=== PATIENT | female | born 1965 | race Caucasian/White ===

== ENCOUNTER → 2019-03-09 10:41 | Outpatient (CLI) | payer BC, SELFPAY ==
--- NOTE | 2019-03-09 | DI.MRI.S_ITS ---
PROCEDURE: MR SHOULDER LT WO CON INDICATIONS: Shoulder injury. TECHNIQUE: Noncontrast oblique coronal T2 fast spin echo with fat saturation, oblique sagittal T1 spin echo and T2 fast spin echo with fat saturation, axial T1 spin echo and T2 fast spin echo with fat saturation through the shoulder. COMPARISON: None. FINDINGS: Image quality: Excellent. Rotator cuff: Small focus of linear high T2 signal intensity traverses the anterior supraspinatus tendon at the femoral insertion site. The supraspinatus, infraspinatus, and subscapularis tendons otherwise appear intact throughout. Sagittal images demonstrate no muscle atrophy. Bones and bursae: No displaced fracture. Moderate ill-defined T2 signal elevation within the inferomedial humeral head humeral neck. Mild acromioclavicular joint degeneration. The acromion demonstrates conventional anatomy, without an os acromiale. A small amount of subacromial-subdeltoid or subcoracoid bursal fluid is present. Capsule and soft tissues: Moderate articular cartilage loss overlies the glenoid. Linear high T2 signal intensity traverses the anteroinferior glenoid labrum. The long head of the biceps tendon demonstrates normal location and morphology. The rotator interval appears normal, without fibrosis. The coracohumeral ligament is normal in thickness. IMPRESSION: 1. Low-grade partial-thickness tearing of the anterior supraspinatus tendon. No full-thickness rotator cuff tears. 2. Contusion within the humeral head and neck. No displaced fracture. 3. Anteroinferior glenoid labral tearing. 4. Glenohumeral joint articular cartilage loss. 5. Subacromial bursitis. 6. Acromioclavicular joint osteoarthritis. Dictated by: Krystyna Estrada M.D. on 03/09/2019 at 12:18 Approved by: Krystyna Estrada M.D. on 03/09/2019 at 12:21
--- NOTE | 2019-03-09 | DI.MG.S_ITS ---
BILATERAL DIGITAL SCREENING MAMMOGRAM 3D/2D WITH CAD: 03/09/2019 CLINICAL: Routine screening. Family history of breast cancer. Comparison is made to exams dated: 01/20/2018 mammogram, 06/16/2015 mammogram - [facility], and 05/13/2014 mammogram - [facility]. The tissue of both breasts is heterogeneously dense. This may lower the sensitivity of mammography. Current study was also evaluated with a Computer Aided Detection (CAD) system. No significant masses, calcifications, or other findings are seen in either breast. There has been no significant interval change. IMPRESSION: NEGATIVE There is no mammographic evidence of malignancy. A 1 year screening mammogram is recommended. This exam was interpreted at Station ID: [id number]. NOTE: For mammograms, a report in lay terms will be sent to the patient. Approximately 15% of breast malignancies will not be visualized mammographically. In the management of a palpable breast mass, a negative mammogram must not discourage biopsy of a clinically suspicious lesion. Electronically Signed By: Tesfaye daily/genevieve:03/09/2019 11:38:34 letter sent: Normal Exam ACR BI-RADS Category 1: Negative 3341F
== END ==
PROVIDERS: PCP Family Medicine; Visit Provider Family Medicine
DX: Z12.31 Encounter for screening mammogram for malignant neoplasm of breast (principal); Z80.3 Family history of malignant neoplasm of breast; M25.512 Pain in left shoulder; S49.92XA Unspecified injury of left shoulder and upper arm, initial encounter; S29.012A Strain of muscle and tendon of back wall of thorax, initial encounter; S40.022A Contusion of left upper arm, initial encounter; M75.52 Bursitis of left shoulder; M19.012 Primary osteoarthritis, left shoulder
CPT/HCPCS: 73221; 77063; 77067

== ENCOUNTER 2019-10-01 06:35 | Day surgery (SDC) | payer BC, SELFPAY ==
[2019-10-01] VITALS (8 sets, daily range): BP systolic 90–122; BP diastolic 53–86; PULSE 66–87; RESP 12–20; TEMP 36.2–36.7; O2SAT 96–100; BMI 21.7
--- NOTE | 2019-10-01 | PATH_ITS ---
[facility] Accession Number: [id number] . 01 Material submitted: . PART A: sigmoid colon - POLYP AT 35 CM SIGMOID PART B: rectum - POLYP 20 CM RECTAL . 01 Clinical history: . SCREENING COLONOSCOPY . 02 Diagnosis: A. Sigmoid Colon, Polyp at 35 cm, Biopsy: Hyperplastic polyp. . B. Rectum, Polyp 20 cm, Biopsy: Hyperplastic polyp. V 10/04/2019 1033 Local . 02 Electronically signed: . Paula Vargas MD, Pathologist NPI- [id number] . 01 Gross description: . Part A: POLYP AT 35 CM SIGMOID: Received in formalin is 1 fragment(s) of ryder, soft tissue measuring 0.3 x 0.2 x 0.2 cm submitted entirely in 1 cassette(s) Part B: POLYP 20 CM RECTAL: Received in formalin are 2 fragment(s) of ryder, soft tissue measuring 0.1 x 0.1 x 0.1 cm to 0.2 x 0.2 x 0.2 cm submitted entirely in 1 cassette(s) /[facility] 10/01/2019 1905 Local . 02 Pathologist provided ICD-10: K63.5, K62.1 . 02 CPT . 853343, [id number] Performed at: 01 [facility] [address], [place], [place] [id number] MD Kei Quiroga MD Phone: [phone] Performed at: 02 [facility] [address] [place], [place] [id number] MD Paula Vargas MD Phone: [phone]
--- NOTE | 2019-10-01 07:39 | P.HP_ITS ---
History of Present Illness History of Present Illness Date Patient Seen: 10/01/19 Time Patient Seen: 07:40 Chief complaint: [id number] SCREENING COLONOSCOPY Narrative: This is a 53-year-old woman an average risk for colon cancer. She has never had a screening colonoscopy. She is here for her 1st screening. She denies any melena or hematochezia. She has had history of anal fissure surgery, and has some chronic leakage since then. Otherwise she is healthy person and denies any other significant medical issues. ROS: Thirteen system review is negative other than as mentioned below and in HPI. PE: GENERAL: Well groomed and cooperative. Appears stated age. Answers questions promptly and appropriately. Vital signs noted. HENT: Normocephalic, atraumatic. Hearing intact. Oral mucosa is pink and moist. EYES: Conjunctiva pink, sclera white, no periorbital swelling. CARDIOVASCULAR: Regular rate. No pedal edema. RESPIRATORY: Normal respiratory rate, breathing comfortably on room air. GASTROINTESTINAL: Abdomen soft and non-distended GENITALURINARY: No flank tenderness. MUSCULOSKELETAL: Equal tone and mass bilaterally. SKIN: Warm, dry, soft, appropriate color for ethnicity. No other lesions, rashes, or wounds. NEURO: Alert and Oriented X 3. No gross sensory deficits, or cognitive issues. PSYCH: Appropriate affect and mood. Patient History Medical History Acne (Chronic) Chicken pox (Resolved 1981) Chronic back pain (Chronic 1987) Chronic headaches (Chronic) Migraines (Chronic 2001) Ovarian cyst (Resolved 1989) Ulnar nerve abnormality (Resolved 1999) Surgical History Anesthesia (Resolved) History of rectal surgery (Resolved 2008) History of surgery on arm (Resolved 2003) Left breast abscess (Resolved 2002) Family & Social History Family History Father Age: 80 Diabetes mellitus Heart disease Hypertension High cholesterol Mother Age: 80 Hypertension High cholesterol Grandmother Cancer Heart attack Grandfather Aneurysm Grandmother Cancer Social History: household members family lives independently Yes Tobacco & Substance use: Smoking Status Former smoker alcohol intake current Meds Home Medications and Allergies Home Medications Medication Instructions Recorded Confirmed Type acyclovir 400 mg PO TID PRN 10/01/19 10/01/19 History estradiol-norethindrone acet 1 tab PO DAILY 10/01/19 10/01/19 History [Amabelz] Allergies Allergy/AdvReac Type Severity Reaction Status Date / Time sertraline AdvReac Intermediate dizziness,c Verified 10/01/19 07:06 onfusion Codiene AdvReac Severe stomache Uncoded 10/01/19 07:06 upset Exam Vital Signs (past 8 hours): - 10/01/19 07:13 Temperature 98.1 F Pulse Rate 78 Respiratory Rate 12 Blood Pressure 113/79 Pulse Oximetry 100 Oxygen Delivery Method Room Air Assessment & Plan Assessment and plan (1) At average risk for colon cancer: Current visit: Yes Status: Acute (2) Colon cancer screening: Current visit: Yes Status: Acute Assessment & Plan narrative: Is a 53-year-old woman here for her 1st screening colonoscopy. Risks and benefits of screening colonoscopy and polypectomy were discussed. Risks including bleeding, perforation, damage to nearby structures, need for surgery need for additional procedures, risk of anesthesia were discussed. The patient had plans to go home today by driving herself to the [place], and I have explained to her in very clear terms that she cannot drive for 24 hours after surgery. She has clearly told me that she will have her mother drive her, and verbalizes clear understanding that she is not to drive for 24 hours after sedation. I have offered to reschedule her for another day but she says this is not necessary. Plan: Screening colonoscopy with possible polypectomy Time Spent With Patient Time with patient: 15-24 minutes Quality VTE Deep Vein Thrombosis/Pulmonary Embolism Present on Admission: No
[2019-10-01] MEDS: SODIUM CHLORIDE 0.9% 1,000 ML 200 ML IV (07:40)
--- NOTE | 2019-10-01 07:45 | SUR.OPER ---
GLASSES IN LABELED CONTAINER TO PACU WITH PATIENT
[2019-10-01] MEDS: MIDAZOLAM 5 MG/5 ML VIAL IV (08:10)
[2019-10-01] MEDS: fentaNYL 250 MCG/5 ML INJ IV (08:10)
--- NOTE | 2019-10-01 08:16 | PM.OP.ENDO ---
Operative Date/Time/Diagnoses Date of procedure: 10/01/19 Time of procedure: 08:16 Pre-op diagnosis: Average risk for colon cancer. Post-op diagnosis: other (Colon polyps Polyps) Procedure & Clinicians Study performed: Screening colonoscopy, polypectomy x2 with cold forceps Same procedure as scheduled: Yes Indications: Average risk for colon cancer, appropriate age for colonoscopy screening Surgeon: Lisbeth Hopson Procedure Notes SCOAP/Timeout: Performed Procedure in detail: The patient was brought to the room and placed in left lateral decubitus position with all bony prominences padded. A time-out was performed and then the patient was given procedural sedation starting with 4 mg of Versed and 100 mcg of fentanyl. Vitals were monitored throughout the procedure and remained stable. Once adequately sedated the procedure was begun. A rectal exam was performed revealing no abnormalities. The colonoscope was then introduced to the rectum and advanced to the cecum in the usual fashion. The cecum was identified by the appendiceal orifice, the mucosal try fold, and the ileocecal valve. The scope was then retracted while rotating side to side and examining each mucosal fold. 2 polyps were removed during retraction of the scope. One was at 35 cm and was a 2 mm flat sessile polyp, and 1 was at 20 cm from the anal verge. It was a 1 cm flat sessile polyp At the conclusion procedure retroflexion was performed and small grade 1-2 internal hemorrhoids without stigmata of bleeding were seen. The scope was then withdrawn from the rectum the procedure was concluded. The patient tolerated the procedure well was transferred to the PACU in stable condition. Scope withdrawal time: 14 Sedation minutes: 26 Findings: internal hemorrhoids and polyp Specimen(s): other (2 mm flat polyp from 35 cm from the anal verge in the sigmoid colon, 1 cm flat polyp from 20 cm from the anal verge in the rectum) Complications: none Impression: Two small polyps, grade 1-2 internal hemorrhoids Post-procedure Recommendations: Colonscopy in 10 years (If pathology is non neoplastic) Follow up: as needed Disposition: PACU
--- NOTE | 2019-10-01 08:38 | SUR.PHASEII ---
Pt waiting for ride, call light provided. Juice, water provided.
--- NOTE | 2019-10-01 09:53 | SUR.PHASEII ---
Discharged by Deyanira
== END 2019-10-01 09:51 | disposition home or self-care (01) ==
PROVIDERS: PCP Family Medicine; Visit Provider Surgery
PROC: 0DJD8ZZ Inspection of Lower Intestinal Tract, Via Natural or Artificial Opening Endoscopic (ICD-10-PCS; CPT 45378; principal; 2019-10-01 07:45)
DX: Z12.11 Encounter for screening for malignant neoplasm of colon (principal); K64.0 First degree hemorrhoids; K63.5 Polyp of colon; K62.1 Rectal polyp
CPT/HCPCS: 45380; 99152; J2250; J3010

== ENCOUNTER → 2020-07-11 10:59 | Outpatient (CLI) | payer OTHER, SELFPAY ==
[2020-07-11 12:40] LABS: Add Manual Diff / Slide Review NO; Basophils Absolute Auto 0 /uL (0-100); Basophils Percent Auto 0.5 % (0-2); Eosinophils Absolute Auto 100 /uL (0-450); Eosinophils Percent Auto 1.3 % (2-4); Hematocrit 42.3 % (36-46); Hemoglobin 14.1 g/dL (12.0-16.0); Lymphocytes Absolute Auto 1600 /uL (1100-4500); Lymphocytes Percent Auto 33.5 % (25-40); Mean Corpuscular HGB Conc 33.3 % (30-36); Mean Corpuscular Hemoglobin 31.7 PG (26-34); Mean Corpuscular Volume 95.2 fL (80-100); Monocytes Absolute Auto 300 /uL (0-900); Monocytes Percent Auto 5.7 % (3-14); Neutrophils Absolute Auto 2900 /uL (1500-7000); Platelet Count 262 X10^3/uL (150-400); Red Blood Cell Count 4.45 X10^6/uL (4.0-5.2); Red Cell Distribution Width 11.6 % (11.6-14.8); White Blood Cell Count 4.8 X10^3/uL (4.5-11.0)
[2020-07-11 12:59] LABS: Alanine Aminotransferase 17 IU/L (<35); Albumin 4.2 g/dL (3.5-5.0); Albumin Globulin Ratio 1.4 (1.0-2.8); Alkaline Phosphatase 58 U/L (38-126); Aspartate Aminotransferase 23 IU/L (14-36); BUN Creatinine Ratio 18.2 (6-22); Bilirubin Total 0.6 mg/dL (0.2-1.3); Blood Urea Nitrogen 14 mg/dL (7-17); Calcium 9.3 mg/dL (8.4-10.2); Carbon Dioxide 32 mmol/L (22-32); Chloride 101 mmol/L (98-107); Estimated Glomerular Filt Rate > 60.0 mL/min (>60); Globulin 2.9 g/dL (1.7-4.1); Glucose 128 mg/dL (70-100); HEMOLYSIS < 15 (0-50); Potassium 4.1 mmol/L (3.4-5.1); Sodium 139 mmol/L (137-145); Total Protein 7.1 g/dL (6.3-8.2)
[2020-07-11 13:18] LABS: Prolactin 8.2 ng/mL (3.0-18.6)
== END ==
PROVIDERS: PCP Family Medicine; Referring Provider Family Medicine; Visit Provider Family Medicine
DX: N64.52 Nipple discharge (principal)
CPT/HCPCS: 36415; 80053; 84146; 85025

== ENCOUNTER → 2020-07-11 11:00 | Outpatient (CLI) | payer OTHER, SELFPAY | PROVIDERS: PCP Family Medicine; Visit Provider Family Medicine | DX: N64.52 Nipple discharge (principal) | CPT/HCPCS: 87070; 87075; 87077; 87147; 87186; 87205 ==

== ENCOUNTER → 2020-12-22 12:32 | Outpatient (CLI) | payer OTHER, SELFPAY | PROVIDERS: PCP Family Medicine; Visit Provider Family Medicine | DX: N89.8 Other specified noninflammatory disorders of vagina (principal) | CPT/HCPCS: 87070; 87205; 87210 ==

== ENCOUNTER → 2021-01-22 11:34 | Outpatient (CLI) | payer OTHER, SELFPAY ==
--- NOTE | 2021-01-22 11:36 | DI.MRI.S_ITS ---
BREAST MRI OF BOTH BREASTS: 01/22/2021 CLINICAL: Persistant bilateral nipple discharge. PROCEDURE: MR BREAST BI WO/W CON INDICATIONS: Persistent bilateral nipple discharge TECHNIQUE: The patient was placed prone in a dedicated breast imaging coil. Precontrast axial STIR and 3D FLASH without fat saturation sequences were obtained. Both before and after bolus injection of contrast, sequential 1-minute axial 3D FLASH with fat saturation sequences for 3 time points, with subtraction images and maximum intensity projections (MIP's) generated. Delayed sagittal FLASH images with fat saturation were also obtained. Contrast: Computer-aided detection, including computer algorithm analysis of MRI image data for lesion detection and characterization, pharmacokinetic analysis, with further physician review for interpretation, was performed. COMPARISON: [facility], US, US BREAST LIMITED RIGHT, 07/18/2020, 15:05. [facility], US, US BREAST LIMITED LEFT, 07/18/2020, 14:59. [facility], MG, MG DIAGNOSTIC BILATERAL DIGITAL BREAST TOMOSYNTHESIS, 07/18/2020, 14:30. [facility], MM SCREENING MAMMO BI, 03/09/2019, 11:06. [facility], BILATERAL SCREENING MAMMOGRAM, 01/20/2018, 10:12. FINDINGS: Image quality: Excellent. There is mild background parenchymal enhancement. Right breast: No mass or suspicious enhancement. Left breast: Left breast 4 o'clock anterior depth T2 mildly hyperintense and T1 intrinsic hyperintense cyst without enhancement measuring 1 x 0.7 x 0.6 cm, (19/70 and 5/61). This corresponds to the abnormality seen on recent ultrasound. This is consistent with a hemorrhagic/proteinaceous cyst or mildly dilated duct. Left breast 3 o'clock middle depth T2 hyperintense benign cyst with minimal peripheral enhancement measuring 0.9 cm, (). Kinetic analysis demonstrates slow initial phase and persistent delayed phase. No mass or suspicious enhancement. Miscellaneous: No suspicious adenopathy. IMPRESSION: BENIGN 1. Right breast: No mass or suspicious enhancement. 2. Left breast: Small proteinaceous/hemorrhagic cyst or mildly dilated duct at left breast 4 o'clock anterior depth 1 cm is benign. No suspicious enhancement. This corresponds to the ultrasound finding. 3. No suspicious adenopathy. BIRADS 2. Future imaging is recommended as follows: 07/19/2021 screening mammogram. COMMENT: The imaging literature indicates that a negative contrast breast MRI examination has a high sensitivity and a moderate specificity for detecting and excluding invasive carcinomas to a detection threshold of 3-5 mm; nonetheless, appropriate clinical and mammographic follow-up are recommended. MRI is not sensitive for detecting DCIS (ductal carcinoma in situ) and may not detect large invasive neoplasms that show only minimal enhancement such as mucinous carcinoma. If there are suspicious calcifications or clinically worrisome palpable masses, then biopsy should still be considered. Invasive neoplasms can be hidden by co-existent and benign enhancement caused by mastitis, hormone therapy effects, radiation therapy, , and recent biopsy or surgery. False positive examinations can occur in a number of circumstances, including breasts that have recently been subject to invasive procedures and those that contain atypical ductal hyperplasia, hormonally stimulated glandular tissue, fat necrosis, or radial scars. Dictated by: Jarrell Duvall M.D. on 01/22/2021 at 16:44 This exam was interpreted at Station ID: [id number]. Electronically Signed By: Jarrell Duvall M.D. slc/:01/22/2021 17:12:56 letter sent: Normal Exam ACR BI-RADS Category 2: Benign Finding(s) 3342F
== END ==
PROVIDERS: PCP Family Medicine; Referring Provider Family Medicine; Visit Provider Family Medicine
DX: N64.52 Nipple discharge (principal)
CPT/HCPCS: 77049

== ENCOUNTER → 2021-02-05 11:35 | Outpatient (CLI) | payer OTHER, SELFPAY | PROVIDERS: PCP Family Medicine; Visit Provider Obstetrics & Gynecology | DX: N76.0 Acute vaginitis (principal) | CPT/HCPCS: 87070; 87205 ==

== ENCOUNTER → 2021-11-26 08:07 | Outpatient (CLI) | payer OTHER, SELFPAY ==
[2021-11-26 09:38] LABS: Alanine Aminotransferase 18 IU/L (<35); Albumin 4.2 g/dL (3.5-5.0); Albumin Globulin Ratio 1.4 (1.0-2.8); Alkaline Phosphatase 57 U/L (38-126); Aspartate Aminotransferase 26 IU/L (14-36); Blood Urea Nitrogen 12 mg/dL (7-17); Calcium 9.3 mg/dL (8.4-10.2); Carbon Dioxide 30 mmol/L (22-32); Chloride 105 mmol/L (98-107); Cholesterol 236 mg/dL (140-199); Estimated Glomerular Filt Rate > 60.0 mL/min (>60); Globulin 2.9 g/dL (1.7-4.1); Glucose 106 mg/dL (70-100); HDL Cholesterol 73 mg/dL (40-60); HEMOLYSIS < 15 (0-50); LDL Cholesterol Calculated 146 mg/dL (<100); Potassium 4.1 mmol/L (3.4-5.1); Sodium 140 mmol/L (137-145); Total Protein 7.1 g/dL (6.3-8.2); Triglycerides 85 mg/dL (35-150)
== END ==
PROVIDERS: PCP Family Medicine; Referring Provider Family Medicine; Visit Provider Family Medicine
DX: Z13.220 Encounter for screening for lipoid disorders (principal); Z13.1 Encounter for screening for diabetes mellitus
CPT/HCPCS: 36415; 80053; 80061

== ENCOUNTER → 2021-11-27 11:39 | Outpatient (CLI) | payer OTHER, SELFPAY ==
--- NOTE | 2021-11-27 | DI.MG.S_ITS ---
BILATERAL DIGITAL SCREENING MAMMOGRAM 3D/2D WITH CAD: 11/27/2021 CLINICAL: Routine screening. Family history of breast cancer. Comparison is made to exams dated: 07/18/2020 mammogram - [facility], 03/09/2019 mammogram, and 01/20/2018 mammogram - [facility]. There are scattered fibroglandular elements in both breasts. Current study was also evaluated with a Computer Aided Detection (CAD) system. No significant masses, calcifications, or other findings are seen in either breast. There has been no significant interval change. IMPRESSION: NEGATIVE There is no mammographic evidence of malignancy. A 1 year screening mammogram is recommended. This exam was interpreted at Station ID: [id number]. NOTE: For mammograms, a report in lay terms will be sent to the patient. Approximately 15% of breast malignancies will not be visualized mammographically. In the management of a palpable breast mass, a negative mammogram must not discourage biopsy of a clinically suspicious lesion. Electronically Signed By: Geno flores/genevieve:11/27/2021 12:20:53 letter sent: Normal Exam ACR BI-RADS Category 1: Negative 3341F
== END ==
PROVIDERS: PCP Family Medicine; Referring Provider Family Medicine; Visit Provider Family Medicine
DX: Z12.31 Encounter for screening mammogram for malignant neoplasm of breast (principal); Z80.3 Family history of malignant neoplasm of breast
CPT/HCPCS: 77063; 77067

== ENCOUNTER → 2022-06-07 12:26 | Outpatient (CLI) | payer OTHER, SELFPAY | PROVIDERS: PCP Family Medicine; Referring Provider Family Medicine; Visit Provider Family Medicine | DX: M85.89 Other specified disorders of bone density and structure, multiple sites (principal) | CPT/HCPCS: 77080 ==

== ENCOUNTER → 2023-01-09 09:58 | Outpatient (CLI) | payer OTHER, SELFPAY ==
--- NOTE | 2023-01-09 | DI.MG.S_ITS ---
BILATERAL DIGITAL SCREENING MAMMOGRAM 3D/2D WITH CAD: 01/09/2023 CLINICAL: Routine screening. Family history of breast cancer. Comparison is made to exams dated: 11/27/2021 mammogram - [facility], 07/18/2020 mammogram - [facility], and 03/09/2019 mammogram - [facility]. There are scattered areas of fibroglandular density in both breasts (category b / 25%-50% glandular tissue). Current study was also evaluated with a Computer Aided Detection (CAD) system. No significant masses, calcifications, or other findings are seen in either breast. There has been no significant interval change. IMPRESSION: NEGATIVE There is no mammographic evidence of malignancy. A 1 year screening mammogram is recommended. Based on the Tyrer Cuzick model (a risk assessment model) the patient's lifetime risk is 13.7% and her 10 year risk is 4.8%. According to the ACR, ACS, and NCCN guidelines, an annual breast MRI exam along with mammogram is recommended if the patient's lifetime risk is 20% or greater. This exam was interpreted at Station ID: [id number]. NOTE: For mammograms, a report in lay terms will be sent to the patient. Approximately 15% of breast malignancies will not be visualized mammographically. In the management of a palpable breast mass, a negative mammogram must not discourage biopsy of a clinically suspicious lesion. Electronically Signed By: Jesse martinez/genevieve:01/09/2023 12:13:02 letter sent: Normal Exam ACR BI-RADS Category 1: Negative 3341F
== END ==
PROVIDERS: PCP Family Medicine; Referring Provider Family Medicine; Visit Provider Family Medicine
DX: Z12.31 Encounter for screening mammogram for malignant neoplasm of breast (principal); Z80.3 Family history of malignant neoplasm of breast
CPT/HCPCS: 77063; 77067

== ENCOUNTER → 2023-03-21 11:29 | Outpatient (CLI) | payer OTHER, SELFPAY ==
[2023-03-21 12:56] LABS: Add Manual Diff / Slide Review NO; Basophils Absolute Auto 0 /uL (0-100); Basophils Percent Auto 0.6 % (0-2); Eosinophils Absolute Auto 0 /uL (0-450); Eosinophils Percent Auto 1.1 % (2-4); Hematocrit 39.1 % (36-46); Hemoglobin 13.3 g/dL (12.0-16.0); Lymphocytes Absolute Auto 1300 /uL (1100-4500); Lymphocytes Percent Auto 30.4 % (25-40); Mean Corpuscular HGB Conc 34.1 % (30-36); Mean Corpuscular Hemoglobin 31.6 PG (26-34); Mean Corpuscular Volume 92.8 fL (80-100); Monocytes Absolute Auto 300 /uL (0-900); Monocytes Percent Auto 7.8 % (3-14); Neutrophils Absolute Auto 2500 /uL (1500-7000); Neutrophils Percent Auto 60.1 % (50-75); Platelet Count 252 X10^3/uL (150-400); Red Blood Cell Count 4.22 X10^6/uL (4.0-5.2); Red Cell Distribution Width 11.8 % (11.6-14.8); White Blood Cell Count 4.2 X10^3/uL (4.5-11.0)
[2023-03-21 15:08] LABS: Alanine Aminotransferase 19 IU/L (<35); Albumin 4.2 g/dL (3.5-5.0); Albumin Globulin Ratio 1.4 (1.0-2.8); Alkaline Phosphatase 82 U/L (38-126); Aspartate Aminotransferase 24 IU/L (14-36); BUN Creatinine Ratio 28.6 (6-22); Bilirubin Total 0.5 mg/dL (0.2-1.3); Blood Urea Nitrogen 18 mg/dL (7-17); Carbon Dioxide 30 mmol/L (22-32); Chloride 103 mmol/L (98-107); Cholesterol 218 mg/dL (140-199); Estimated Glomerular Filt Rate > 60 mL/min (>60); Glucose 84 mg/dL (70-100); HDL Cholesterol 77 mg/dL (40-60); HEMOLYSIS < 15 (0-50); LDL Cholesterol Calculated 125 mg/dL (<100); Potassium 4.2 mmol/L (3.4-5.1); Sodium 139 mmol/L (137-145); Total Protein 7.2 g/dL (6.3-8.2); Triglycerides 79 mg/dL (35-150)
[2023-03-21 15:23] LABS: Vitamin D 25 Hydroxy (D3) 30.5 ng/mL (30.0-100.0)
== END ==
PROVIDERS: PCP Family Medicine; Referring Provider Family Medicine; Visit Provider Family Medicine
DX: M85.80 Other specified disorders of bone density and structure, unspecified site (principal); E78.5 Hyperlipidemia, unspecified
CPT/HCPCS: 36415; 80053; 80061; 82306; 85025

== ENCOUNTER → 2023-04-03 07:38 | Outpatient (CLI) | payer OTHER, SELFPAY ==
--- NOTE | 2023-04-03 07:39 | DI.US.S_ITS ---
PROCEDURE: US PELVIC COMPLETE INDICATIONS: POSTMENOPAUSAL BLEEDING TECHNIQUE: Real-time scanning was performed of the pelvic organs, with image documentation. Additional endovaginal scanning was necessary due to incomplete visualization of the adnexal and endometrial structures by transabdominal scanning. COMPARISON: None. FINDINGS: Uterus: Uterus is anteverted and normal in size at 4.4 x 2.1 x 3.6 cm. The myometrium is homogeneous. The endometrium measures 2 mm combined thickness. Ovaries: The right ovary measures 2.0 x 1.5 x 1.5 cm, with a calculated ovarian volume of 2.4 cc. The left ovary measures 1.5 x 1.3 x 1.4 cm, with a calculated ovarian volume of 1.4 cc. The ovaries have a normal sonographic appearance. Less than 12 follicles can be seen in each ovary. No adnexal masses are seen. Other: No pathologic free abdominal or pelvic fluid. IMPRESSION: Endometrial thickness of 2 mm suggestive of endometrial atrophy and potentially explain symptoms of postmenopausal bleeding. Otherwise, unremarkable sonographic evaluation of the pelvis. We strive to produce accurate, complete, and clear reports of imaging services. To assist us in improving patient care, this report was composed using standard report templates and voice recognition software. Therefore, it may contain abnormal punctuation, insertions and/or omissions. Occasional wrong-word or sound-alike substitutions may occur. Though we review the report and make efforts to correct it, we do recommend that the report be read carefully in proper context to recognize any text inaccuracies. Dictated by: Tesfaye Cortez M.D. on 04/03/2023 at 10:01 Approved by: Tesfaye Cortez M.D. on 04/03/2023 at 10:04
== END ==
PROVIDERS: PCP Family Medicine; Referring Provider Family Medicine; Visit Provider Family Medicine
DX: N95.0 Postmenopausal bleeding (principal)
CPT/HCPCS: 76830; 76856

== ENCOUNTER → 2023-09-26 13:54 | Outpatient (CLI) | payer OTHER, SELFPAY ==
[2023-09-26 18:09] LABS: Add Manual Diff / Slide Review NO; Basophils Absolute Auto 0 /uL (0-100); Basophils Percent Auto 0.9 % (0-2); Eosinophils Absolute Auto 100 /uL (0-450); Eosinophils Percent Auto 2.6 % (2-4); Hematocrit 38.5 % (36-46); Lymphocytes Absolute Auto 1700 /uL (1100-4500); Lymphocytes Percent Auto 35.3 % (25-40); Mean Corpuscular HGB Conc 33.7 % (30-36); Mean Corpuscular Hemoglobin 31.3 PG (26-34); Monocytes Absolute Auto 300 /uL (0-900); Monocytes Percent Auto 7.1 % (3-14); Neutrophils Absolute Auto 2600 /uL (1500-7000); Neutrophils Percent Auto 54.1 % (50-75); Platelet Count 277 X10^3/uL (150-400); Red Blood Cell Count 4.14 X10^6/uL (4.0-5.2); White Blood Cell Count 4.8 X10^3/uL (4.5-11.0)
[2023-09-26 18:17] LABS: HEMOLYSIS < 15 (0-50)
[2023-09-26 18:22] LABS: Alanine Aminotransferase 20 IU/L (<35); Albumin 4.1 g/dL (3.5-5.0); Albumin Globulin Ratio 1.3 (1.0-2.8); Alkaline Phosphatase 88 U/L (38-126); Aspartate Aminotransferase 24 IU/L (14-36); BUN Creatinine Ratio 22.1 (6-22); Bilirubin Total 0.2 mg/dL (0.2-1.3); Blood Urea Nitrogen 15 mg/dL (7-17); Calcium 9.4 mg/dL (8.4-10.2); Carbon Dioxide 28 mmol/L (22-32); Chloride 100 mmol/L (98-107); Estimated Glomerular Filt Rate > 60 mL/min (>60); Globulin 3.1 g/dL (1.7-4.1); Glucose 94 mg/dL (70-100); Sodium 139 mmol/L (137-145); Total Protein 7.2 g/dL (6.3-8.2)
[2023-09-26 18:54] LABS: TSH w/ Reflex to FT4 1.01 uIU/mL (0.47-4.68)
[2023-09-26 19:04] LABS: Prolactin 9.2 ng/mL (3.0-18.6)
== END ==
PROVIDERS: PCP Student in an Organized Health Care Education/Training Program; Referring Provider Student in an Organized Health Care Education/Training Program; Visit Provider Student in an Organized Health Care Education/Training Program
DX: Z00.00 Encounter for general adult medical examination without abnormal findings (principal); N95.0 Postmenopausal bleeding; N95.9 Unspecified menopausal and perimenopausal disorder; Z13.29 Encounter for screening for other suspected endocrine disorder
CPT/HCPCS: 36415; 80053; 84146; 84443; 85025

== ENCOUNTER → 2023-10-01 16:38 | Outpatient (CLI) | payer OTHER, SELFPAY ==
--- NOTE | 2023-10-01 16:40 | DI.US.S_ITS ---
PROCEDURE: US SOFT TISSUE HEAD AND NECK INDICATIONS: NECK MASS - RIGHT TECHNIQUE: Real-time scanning was performed of the neck region of interest, with image documentation. COMPARISON: None. Findings and impression: At the area of interest at the angle of the mandible on the right, there are borderline enlarged lymph nodes measuring 7 mm in short axis. These are indeterminate and may be reactive . Clinical follow-up is recommended. If there are new or worsening symptoms, consider reimaging or sampling. Dictated by: Stephane Ivan M.D. on 10/02/2023 at 16:15 Approved by: Stephane Ivan M.D. on 10/02/2023 at 16:16
== END ==
PROVIDERS: PCP Student in an Organized Health Care Education/Training Program; Referring Provider Student in an Organized Health Care Education/Training Program; Visit Provider Student in an Organized Health Care Education/Training Program
DX: R22.1 Localized swelling, mass and lump, neck (principal)
CPT/HCPCS: 76536

== ENCOUNTER → 2023-10-07 10:47 | Outpatient (CLI) | payer OTHER, SELFPAY ==
--- NOTE | 2023-10-07 10:48 | DI.CT.S_ITS ---
PROCEDURE: CT SOFT TISSUE NECK W CON INDICATIONS: lump in neck TECHNIQUE: After the administration of intravenous contrast, 3.0 mm axial sections acquired from the sella to the aortic arch. Additional oblique axial 3.0 mm sections acquired through the pharynx. 3 mm thick coronal and sagittal reformats were generated. For radiation dose reduction, the following was used: automated exposure control. COMPARISON: [facility], , SOFT TISSUE HEAD AND NECK, 10/01/2023, 16:45. FINDINGS: Image quality: Excellent. Lymph nodes: No enlarged lymph nodes seen throughout the neck. Borderline prominent right submandibular lymph nodes are seen, without pathologic enlargement Vessels: Visualized vasculature appears patent. Neck spaces: The oropharynx, nasopharynx, and pharynx demonstrate no mucosal lesions. The vocal cords, false vocal cords, pyriform sinuses, epiglottis, vallecula, and tongue base all appear normal. Extramucosal spaces appear unremarkable. Glands: The area of clinical concern is seen immediately adjacent to the right submandibular gland. The right submandibular gland appears normal, although is mildly low lying compared to the left submandibular gland. No submandibular masses are seen. The parotid glands appear normal. Thyroid gland demonstrates no significant abnormality. Miscellaneous: Visualized brain and orbits appear normal. Lung apices appear clear. Superficial soft tissues appear normal. Bones: No suspicious bony lesions. Visualized sinuses and mastoids appear unremarkable. IMPRESSION: No masses or enlarged lymph nodes can be seen at the site of clinical concern. The site of palpable concern is seen immediately adjacent to the right superior gland, which is normal in appearance, without masses, although it is mildly low lying compared to the left submandibular gland. Borderline prominent lymph nodes can be seen involving the right subdural region, which are not regarded to be frankly pathologic. Dictated by: Castillo Keen M.D. on 10/07/2023 at 12:48 Approved by: Castillo Keen M.D. on 10/07/2023 at 12:51
== END ==
PROVIDERS: PCP Student in an Organized Health Care Education/Training Program; Referring Provider Student in an Organized Health Care Education/Training Program; Visit Provider Student in an Organized Health Care Education/Training Program
DX: R22.1 Localized swelling, mass and lump, neck (principal)
CPT/HCPCS: 70491; Q9967

== ENCOUNTER → 2023-12-16 14:37 | Outpatient (CLI) | payer OTHER, SELFPAY ==
--- NOTE | 2023-12-16 14:39 | DI.MRI.S_ITS ---
BREAST MRI OF BOTH BREASTS: 12/16/2023 CLINICAL: Nipple Discharge. PROCEDURE: MR BREAST BI WO/W CON INDICATIONS: Persistent bilateral non spontaneous nipple discharge. TECHNIQUE: The patient was placed prone in a dedicated breast imaging coil. Precontrast axial STIR and 3D FLASH without fat saturation sequences were obtained. Both before and after bolus injection of contrast, sequential 1-minute axial 3D FLASH with fat saturation sequences for 3 time points, with subtraction images and maximum intensity projections (MIP's) generated. Delayed sagittal FLASH images with fat saturation were also obtained. Computer-aided detection, including computer algorithm analysis of MRI image data for lesion detection and characterization, pharmacokinetic analysis, with further physician review for interpretation, was performed. COMPARISON: [facility], , MR BREAST BI WO/W CON, 01/22/2021, 12:21. FINDINGS: Image quality: Diagnostic. There is scattered amount of fibroglandular tissue. There is minimal and symmetric background parenchymal enhancement. Right breast: No suspicious enhancement or lymphadenopathy. Left breast: No suspicious enhancement or lymphadenopathy. IMPRESSION: NEGATIVE No MRI evidence of malignancy. No suspicious enhancement in the retroareolar region to explain patient's nipple discharge. Recommend routine annual mammography screening (due December 2023). Recommend clinical follow-up for persistent non- spontaneous nipple discharge. This exam was interpreted at Station ID: [id number]. Electronically Signed By: Cait Rosado M.D., PH.D eb/:12/16/2023 16:48:24 ACR BI-RADS Category 1: Negative 3341F
== END ==
PROVIDERS: PCP Student in an Organized Health Care Education/Training Program; Referring Provider Surgery; Visit Provider Surgery
DX: N64.52 Nipple discharge (principal)
CPT/HCPCS: 77049; A9579

== ENCOUNTER → 2024-01-13 14:57 | Outpatient (CLI) | payer OTHER, SELFPAY ==
--- NOTE | 2024-01-13 14:58 | DI.MG.S_ITS ---
BILATERAL DIGITAL SCREENING MAMMOGRAM 3D/2D WITH CAD: 01/13/2024 CLINICAL: Routine screening. Family history of breast cancer. Comparison is made to exams dated: 01/09/2023 mammogram, 11/27/2021 mammogram - [facility], and 07/18/2020 mammogram - [facility]. There are scattered areas of fibroglandular density in both breasts (category b / 25%-50% glandular tissue). Current study was also evaluated with a Computer Aided Detection (CAD) system. No significant masses, calcifications, or other findings are seen in either breast. There has been no significant interval change. IMPRESSION: NEGATIVE There is no mammographic evidence of malignancy. A 1 year screening mammogram is recommended. Based on the Tyrer Cuzick model (a risk assessment model) the patient's lifetime risk is 13.5% and her 10 year risk is 5.1%. According to the ACR, ACS, and NCCN guidelines, an annual breast MRI exam along with mammogram is recommended if the patient's lifetime risk is 20% or greater. This exam was interpreted at Station ID: [id number]. NOTE: For mammograms, a report in lay terms will be sent to the patient. Approximately 15% of breast malignancies will not be visualized mammographically. In the management of a palpable breast mass, a negative mammogram must not discourage biopsy of a clinically suspicious lesion. Electronically Signed By: Brynn calzada/genevieve:01/13/2024 16:54:56 letter sent: Normal Exam ACR BI-RADS Category 1: Negative [id number]
== END ==
PROVIDERS: PCP Student in an Organized Health Care Education/Training Program; Referring Provider Student in an Organized Health Care Education/Training Program; Visit Provider Student in an Organized Health Care Education/Training Program
DX: Z12.31 Encounter for screening mammogram for malignant neoplasm of breast (principal); Z80.3 Family history of malignant neoplasm of breast; R92.323 Mammographic fibroglandular density, bilateral breasts
CPT/HCPCS: 77063; 77067

== ENCOUNTER → 2024-09-16 12:09 | Outpatient (CLI) | payer OTHER, SELFPAY ==
--- NOTE | 2024-09-16 12:10 | DI.RAD.S_ITS ---
PROCEDURE: XR CHEST 2V INDICATIONS: Acute Cough/ R/O URI TECHNIQUE: 2 views of the chest were acquired. COMPARISON: None. FINDINGS: Surgical changes and devices: None. Lungs and pleura: Lungs are clear. No pleural effusions or pneumothorax. Mediastinum: Mediastinal contours are normal. Heart size is normal. Bones and chest wall: No suspicious bony abnormalities. Soft tissues appear unremarkable. IMPRESSION: No acute cardiopulmonary abnormality is seen. Dictated by: Priyank Mcelroy M.D. on 09/16/2024 at 12:49 Approved by: Priyank Mcelroy M.D. on 09/16/2024 at 12:50
== END ==
PROVIDERS: PCP Student in an Organized Health Care Education/Training Program; Referring Provider Student in an Organized Health Care Education/Training Program; Visit Provider Student in an Organized Health Care Education/Training Program
DX: R05.1 Acute cough (principal); R06.02 Shortness of breath
CPT/HCPCS: 71046

== ENCOUNTER → 2024-11-03 09:32 | Outpatient (CLI) | payer OTHER, SELFPAY ==
--- NOTE | 2024-11-03 09:32 | DI.RAD.S_ITS ---
PROCEDURE: XR DEXA AXIAL SKELETON INDICATIONS: HX of Osteopenia COMPARISON: [facility], SARK[place], XR DEXA AXIAL SKELETON, 06/07/2022, 13:10. [facility], CR, DEXA AXIAL SKELETON, 01/20/2018, 10:16. FINDINGS: Lumbar Spine: Bone mineral density 0.827 g/cm2, T score -2.1, no statistically significant change compared to prior. Left Hip: Bone mineral density 0.771 g/cm2, T score -1.4, no statistically significant change compared to prior. Left Femoral Neck: Bone mineral density 0.588 g/cm2, T score -2.4. Right Hip: Bone mineral density 0.742 g/cm2, T score -1.6, decreased by 4.4%. Right Femoral Neck: Bone mineral density 0.592 g/cm2, T score -2.3. Fracture Risk Calculation (when applicable): 10-year fracture risk of a major osteoporotic fracture 9.9 percent and of a hip fracture 0.6 percent. (T score greater or equal to -1.0 to: NORMAL) (T score from -1.1 to -2.4: OSTEOPENIA) (T score less than or equal to -2.5: OSTEOPOROSIS) IMPRESSION: Low bone mineral density (osteopenia) by WHO classification. Follow-up guidelines as follows: Osteoporosis: Consider a repeat DEXA and Vertebral Fracture Assessment (VFA) exam in 2 years or sooner if medically necessary, to reassess this patient's status. Osteopenia: Consider a repeat DEXA in 2-3 years to reassess this patient's status, or if there is a new clinical indication. Normal: Consider a repeat DEXA in 5 years or sooner, or if there is a new clinical indication. All treatment decisions require clinical judgment and consideration of individual patient factors, including patient preferences, comorbidities, previous drug use, risk factors not captured in the FRAX model (e.g., frailty, falls, vitamin D deficiency, increased bone turnover, interval significant decline in bone density ) and possible under- or over-estimation of fracture risk by FRAX. In addition, the NOF Guide recommends that FDA-approved medical therapies be considered in postmenopausal women and men age >= 50 years with a: * Hip or vertebral (clinical or morphometric) fracture * T-score of <=-2.5 at the spine or hip * Ten-year fracture probability by FRAX of >= 3% for hip fracture or >=20% for major osteoporotic fracture. People with diagnosed cases of osteoporosis or at high risk for fracture should have regular bone mineral density tests. For patients eligible for Medicare, routine testing is allowed once every 2 years. The testing frequency can be increased to one year for patients who have rapidly progressing disease, those who are receiving or discontinuing medical therapy to restore bone mass, or have additional risk factors. Dictated by: Dave Swanson M.D. on 11/03/2024 at 12:35 Approved by: Dave Swanson M.D. on 11/03/2024 at 12:50
== END ==
PROVIDERS: PCP Student in an Organized Health Care Education/Training Program; Referring Provider Student in an Organized Health Care Education/Training Program; Visit Provider Student in an Organized Health Care Education/Training Program
DX: M85.89 Other specified disorders of bone density and structure, multiple sites (principal)
CPT/HCPCS: 77080

== ENCOUNTER → 2025-02-28 08:10 | Outpatient (CLI) | payer OTHER, SELFPAY ==
--- NOTE | 2025-02-28 08:12 | DI.MG.S_ITS ---
MM screening mammo BI: 02/28/2025. BI-RADS: 1 CLINICAL: 59-year old female for bilateral screening mammogram. Tyrer-Cuzick lifetime risk of 6.7%. No personal or first-degree family history of breast cancer. PRIOR EXAMS 01/13/2024, 12/16/2023, 01/09/2023, 11/27/2021, 01/22/2021, 07/18/2020, 03/09/2019, 01/20/2018, 06/16/2015. MAMMOGRAPHY TECHNIQUE: 2D and 3D (tomosynthesis) digital mammographic views obtained, with additional images as needed for full coverage. Current study was also evaluated with a Computer Aided Detection (CAD) system. DENSITY B. There are scattered areas of fibroglandular density. MAMMOGRAPHY FINDINGS Bilateral: No suspicious mass, asymmetry, microcalcification, or other abnormality seen. No significant change from comparison. IMPRESSION: * No evidence of malignancy. RECOMMENDATIONS Bilateral * Annual screening mammography. OVERALL ASSESSMENT CATEGORY BI-RADS-1: Negative. The [employer] recommends annual screening mammography beginning at age 40 for women with average risk of breast cancer. ELECTRONICALLY SIGNED: Bessie Garner M.D. on 02/28/2025 at 05:12:46 PM PT Interpreting Station ID: [id number]
== END ==
PROVIDERS: PCP Student in an Organized Health Care Education/Training Program; Referring Provider Student in an Organized Health Care Education/Training Program; Visit Provider Student in an Organized Health Care Education/Training Program
DX: Z12.31 Encounter for screening mammogram for malignant neoplasm of breast (principal)
CPT/HCPCS: 77063; 77067

== ENCOUNTER 2025-03-31 09:00 | Day surgery (SDC) | payer OTHER, SELFPAY ==
--- NOTE | 2025-03-31 | PATH_ITS ---
[facility] Accession Number: [id number] No. of containers..01 Tissue . 01 Material submitted: . colon - COLON, SIGMOID POLYP . 01 Diagnosis: SIGMOID COLON POLYP: Hyperplastic polyp. MRV 04/04/2025 1305 Local . 01 Electronically signed: . Josue Al MD, PhD, Pathologist NPI- [id number] . 01 Gross description: . Received in formalin with two patient identifiers and 1. Sigmoid colon polyp, are two ryder to brown soft tissue fragments, 0.2 to 0.5 cm in greatest dimension, submitted in A1. ([id number]) /MRV 04/02/2025 1736 Local . 01 Pathologist provided ICD-10: K63.5 . 01 CPT . 645620 Specimen Comment: A courtesy copy of this report has been sent to [phone] Performed at: [address] [id number] MD Kei Quiroga MD Phone: [phone]
[2025-03-31 09:44] VITALS: BP 137/84; PULSE 85; RESP 17; TEMP 36.9; O2SAT 97
[2025-03-31] MEDS: LACTATED RINGERS 1,000 ML 42 ML IV (09:48)
--- NOTE | 2025-03-31 09:56 | PM.HP.IH.1 ---
History of Present Illness History of Present Illness Date Patient Seen: 03/31/25 Time Patient Seen: 09:56 Chief complaint: Screening Colonoscopy Narrative: Krysten is a 59-year-old woman who is here for a colonoscopy. Last one was about [address] Johnson and 2 small hyperplastic polyps were removed. No first-degree relative with colon cancer. [facility] Medical History Ulnar nerve abnormality (1999) Acne Chronic back pain (1987) Chicken pox (1981) Ovarian cyst (1989) Migraines (2001) Chronic headaches Surgical History Anesthesia History of rectal surgery (2008) History of surgery on arm (2003) Left breast abscess (2002) Family History Father Age: 85 Diabetes mellitus Heart disease Hypertension High cholesterol Mother Age: 85 Hypertension High cholesterol Grandmother Cancer Heart attack Grandfather Aneurysm Grandmother Cancer Social History marital status: number of children: 2 household members: family lives independently: Yes education level: college occupational status: other Smoking Status: Never smoker alcohol intake: current substance use type: does not use Meds Home Medications and Allergies Home Medications Medication Instructions Recorded Confirmed Type sumatriptan succinate 50 mg tablet See Rx Instructions PO .COMPLEX 09/16/24 03/31/25 Rx #14 tabs acyclovir 400 mg tablet 400 mg PO TID PRN cold sores #30 10/06/24 03/31/25 Rx tabs estradiol 10 mcg vaginal tablet See Rx Instructions .Route 02/07/25 03/31/25 Rx .COMPLEX #30 tabs Allergies Allergy/AdvReac Type Severity Reaction Status Date / Time sertraline AdvReac Intermediate dizziness,c Verified 03/31/25 09:35 onfusion Codiene AdvReac Severe stomache Uncoded 11/19/24 13:14 upset Exam Vital Signs (past 8 hours): - 03/31/25 09:44 Temperature 98.4 F Pulse Rate 85 Respiratory Rate 17 Blood Pressure 137/84 Pulse Oximetry 97 Oxygen Delivery Method Room Air Oxygen Delivery Method Room Air Const General: healthy appearing Resp Effort & Inspection: normal respiratory effort Assessment & Plan Assessment and plan (1) Colon cancer screening: Status: Acute Plan Colonoscopy Time-Based Coding :: [TOTAL MINUTES] spent with patient and on the chart (including review of chart, obtaining history, exam, reviewing outside data, placing orders, documenting exam and treatment plan, and counseling patient) on [DATE]. PROFEE Clinical Trials Assistant Document charge(s): No
--- NOTE | 2025-03-31 10:40 | PM.OP.COLON ---
Operative Date/Time/Diagnoses Date of procedure: 03/31/25 Time of procedure: 10:40 Pre-op diagnosis: Colon cancer screening Post-op diagnosis: same Procedure & Clinicians Study performed: Colonoscopy Same procedure as scheduled: Yes Surgeon: Pedro Rodríguez Procedure Notes Procedure in detail: Surgeon: Pedro Rodríguez MD Anesthesia: Celine Tellez CRNA Procedure: The patient was brought to the endoscopy suite, placed in left lateral decubitus position. The patient was connected to monitoring devices. A time-out was performed. Sedation was administered. Once the patient was adequately sedated, a digital rectal exam was performed and was normal. The scope was then inserted and advanced to the cecum where the appendiceal orifice was identified and photographed. The scope was then slowly withdrawn over greater than 6 minutes. The mucosa was thoroughly inspected. There were 2 small polyps in the distal sigmoid colon removed with a cold snare and sent together. The scope was retroflexed in the rectum. Mild internal hemorrhoids were noted. The scope was straightened and removed. The patient was awakened and brought to recovery. Scope withdrawal time: 8 minutes Sedation time: 15 minute EBL: 2 mL Findings: 2 small polyps in the sigmoid colon, mild internal hemorrhoids Post-procedure Disposition: PACU
[2025-03-31 10:42] VITALS: BP 89/57; PULSE 70; RESP 14; TEMP 36.2; O2SAT 97
[2025-03-31 10:53] VITALS: BP 115/76; PULSE 75; RESP 16; TEMP 36.6; O2SAT 98
== END 2025-03-31 11:12 | disposition home or self-care (01) ==
PROVIDERS: PCP Student in an Organized Health Care Education/Training Program; Referring Provider Surgery; Visit Provider Surgery
PROC: 0DJD8ZZ Inspection of Lower Intestinal Tract, Via Natural or Artificial Opening Endoscopic (ICD-10-PCS; CPT 45378; principal; 2025-03-31 10:15)
DX: Z12.11 Encounter for screening for malignant neoplasm of colon (principal); Z86.0102 Personal history of hyperplastic colon polyps; Z88.8 Allergy status to other drugs, medicaments and biological substances; K64.8 Other hemorrhoids
CPT/HCPCS: 45385; J2704

== ENCOUNTER → 2025-10-29 08:11 | Outpatient (CLI) | payer OTHER, SELFPAY ==
[2025-10-29 09:15] LABS: Add Manual Diff / Slide Review NO; Hematocrit 39.1 % (36-46); Hemoglobin 13.4 g/dL (12.0-16.0); Lymphocytes Absolute Auto 1400 /uL (1100-4500); Mean Corpuscular HGB Conc 34.2 % (30-36); Mean Corpuscular Hemoglobin 31.9 PG (26-34); Mean Corpuscular Volume 93.3 fL (80-100); Platelet Count 265 X10^3/uL (150-400)
[2025-10-29 09:22] LABS: Hemoglobin A1C% w Est Avg Glu 5.3 % (4.0-6.0)
[2025-10-29 09:36] LABS: Alanine Aminotransferase 16 IU/L (<35); Albumin 3.9 g/dL (3.5-5.0); Albumin Globulin Ratio 1.4 (1.0-2.8); Alkaline Phosphatase 72 U/L (38-126); Blood Urea Nitrogen 11 mg/dL (7-17); Calcium 9.0 mg/dL (8.4-10.2); Carbon Dioxide 29 mmol/L (22-32); Chloride 106 mmol/L (98-107); Estimated Glomerular Filt Rate > 60 mL/min (>60); Globulin 2.7 g/dL (1.7-4.1); Glucose 113 mg/dL (70-99); HEMOLYSIS < 15 (0-50); Lipase 46 U/L (23-300); Potassium 4.5 mmol/L (3.4-5.1); Sodium 140 mmol/L (137-145); Total Protein 6.6 g/dL (6.3-8.2)
[2025-10-29 10:07] LABS: Thyroid Stimulating Hormone 0.661 uIU/mL (0.47-4.68)
== END ==
PROVIDERS: PCP Student in an Organized Health Care Education/Training Program; Referring Provider Student in an Organized Health Care Education/Training Program; Visit Provider Student in an Organized Health Care Education/Training Program
DX: R10.9 Unspecified abdominal pain (principal)
CPT/HCPCS: 36415; 80053; 83013; 83036; 83690; 84443; 85025